=== PATIENT | female | born 1995 ===

== ENCOUNTER 2023-12-08 13:29 | Outpatient (CLI) | payer OTHER | END 2023-12-08 13:31 | disposition home or self-care (01) | LOC: PRENATAL 13:29 | PROVIDERS: ATTEND Obstetrics & Gynecology Maternal & Fetal Medicine | DX: O26.843 Uterine size-date discrepancy, third trimester (principal); O36.8130 Decreased fetal movements, third trimester, not applicable or unspecified; Z3A.36 36 weeks gestation of pregnancy; O44.03 Complete placenta previa NOS or without hemorrhage, third trimester ==